=== PATIENT | male | born 1995 | race Caucasian/White ===

== ENCOUNTER 2020-12-08 10:01 | Emergency (ER) | payer OTHER ==
[~2020-12-08] VITALS: Ht 172.7 cm; Wt 56.7 kg
[2020-12-08 10:11] VITALS: BP_SYST 130
[2020-12-08] MEDS ORDERED: IBUPROFEN 600 MG TABLET PO ONE (10:45)
[2020-12-08 11:13] VITALS: BP_SYST 130
== END 2020-12-08 11:12 | disposition home or self-care (01) ==
LOC: SED 10:01
DX: S63.641A Sprain of metacarpophalangeal joint of right thumb, initial encounter (principal); W18.39XA Other fall on same level, initial encounter; Y93.89 Activity, other specified; Y92.89 Other specified places as the place of occurrence of the external cause; Y99.8 Other external cause status
CPT/HCPCS: 73140-TC; 99283

== ENCOUNTER 2021-08-08 19:37 | Emergency (ER) | payer OTHER ==
[~2021-08-08] VITALS: Ht 170.2 cm; Wt 56.7 kg
[2021-08-08 19:57] VITALS: BP_SYST 114
--- NOTE | 2021-08-08 20:08 | NUR ---
Patient to ER bed 05 to gown for evaluation. Side rails up.
--- NOTE | 2021-08-08 20:13 | NUR ---
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 BILATERAL EXPIRATORY WHEEZING , A&O X4, FRIEND PRESENT AT BEDSIDE
[2021-08-08 20:14] VITALS: BP_SYST 114
[2021-08-08] MEDS ORDERED: ALBU2.5V7 INH (20:49)
--- NOTE | 2021-08-08 20:54 | NUR ---
PT COMPLAINED OF SOB AFTER WALKING FROM BATHROOM TO BED. PT STATED "HOW LONG IS THIS GOING TO FUCKING TAKE!" PT REMINDED TO REMAIN CALM, AND WAS ADVISED THAT MD WOULD SOON DISCHARGE PT AFTER RE-EVALUATION. PT STILL UPSET AND YELLED "I HAVE BEEN HERE OVER AN HOUR ALREADY!" EXPLAINED TO PT THAT MD WILL PROVIDE PRESCRIPTION PENDING DISPOSITION. PT CONTINUED TO CURSE AND YELL, RIPPING OFF OXYGEN SATURATION MONITOR AND BLOOD PRESSURE CUFF. PT STATED "ILL JUST LEAVE, I KNOW WHERE THE EXIT IS!" PT ENCOUARGED TO REMAIN IN ROOM 6, AND RISKS OF LEAVING PRIOR TO RE-EVALUATION BY MD EXPLAINED. NOTIFIED OF PT REQUESTING TO LEAVE. UPON RETURNING TO ROOM 6, PT WAS OBSERVED WALKING TOWARDS EXIT WITH ALL BELONGINGS. NO DISCHARGE DOCUMENTS OR PRESCRIPTION WAS PROVIDED TO PT PRIOR TO PT EXITING. PT CANDIDMD AWARE.
== END 2021-08-08 21:02 | disposition left against medical advice (07) ==
LOC: SED 19:37
DX: J45.901 Unspecified asthma with (acute) exacerbation (principal); Z79.899 Other long term (current) drug therapy
CPT/HCPCS: 99281